=== PATIENT | female | born 1985 | race Caucasian/White ===

== ENCOUNTER → 2018-01-01 08:35 | Outpatient (CLI) | payer OTHER, SELFPAY ==
--- NOTE | 2018-01-01 | DI.US.S_ITS ---
PROCEDURE: US PELVIC COMPLETE INDICATIONS: LEFT OVARIAN CYST FOLLOW UP TECHNIQUE: Real-time scanning was performed of the pelvic organs, with image documentation. Additional endovaginal scanning was necessary due to incomplete visualization of the adnexal and endometrial structures by transabdominal scanning. COMPARISON: [facility], , PELVIC COMPLETE, 11/21/2017, 7:41. FINDINGS: Transabdominal scanning: Limited scanning through the kidneys shows no hydronephrosis. The kidneys measure 10.6 CM right and 10.8 CM left. No pathologic free abdominal or pelvic fluid. Endovaginal scanning: Uterus: Uterus is normal in size at 3.8 x 4.4 x 6.3 cm. The endometrium measures 8.0 mm in combined thickness. Small right posterior intramural fibroid is again noted measuring 8 x 8 mm. Ovaries: Right ovary appears normal measuring 20 x 25 x 32 mm. The left ovary measures 19 x 24 x 36 mm and again contains a small complex cyst versus solid mass that is smaller measuring 11 x 13 x 14 mm now compared to 15 x 17 x 20 mm on prior. IMPRESSION: 1. Small 8 x 8 mm uterine fibroid. 2. Normal right ovary. 3. Left ovarian complex cyst, now having more appearance of a solid structure but decreased in size from 2 cm maximum diameter on last exam to 1.4 cm on current. Probable involuting physiological cyst. Dictated by: Federico Pandya M.D. on 01/01/2018 at 9:36 Approved by: Federico Pandya M.D. on 01/01/2018 at 9:42
== END ==
PROVIDERS: Family Provider Nurse Practitioner Family; PCP Nurse Practitioner Family; Visit Provider Nurse Practitioner Family
DX: N83.202 Unspecified ovarian cyst, left side (principal); D25.9 Leiomyoma of uterus, unspecified
CPT/HCPCS: 76830; 76856

== ENCOUNTER → 2018-03-27 10:37 | Outpatient (CLI) | payer OTHER, SELFPAY ==
--- NOTE | 2018-03-27 | DI.US.S_ITS ---
PROCEDURE: US PELVIC COMPLETE INDICATIONS: PELVIC PAIN TECHNIQUE: Real-time scanning was performed of the pelvic organs, with image documentation. Additional endovaginal scanning was necessary due to incomplete visualization of the adnexal and endometrial structures by transabdominal scanning. COMPARISON: [facility], PELVIC COMPLETE, 11/21/2017, 7:41. [facility], PELVIC COMPLETE, 01/01/2018, 8:52. FINDINGS: Transabdominal scanning: Limited scanning through the kidneys shows right-sided hydronephrosis. A right ureteral jet can be seen. A mild amount of free pelvic fluid is seen, which is considered to be within physiologic limits. Endovaginal scanning: Uterus: Uterus is normal in size at 6.4 x 3.3 x 4.4 cm. The endometrium measures 7 mm in combined thickness. There is a 1 cm intramural fibroid seen posteriorly. Ovaries: The right ovary measures 2.4 x 2 x 3.1 cm and demonstrates a 13 mm dominant follicle, which is considered to be within physiologic limits. The left ovary measures 2.5 x 2.1 x 3.2 cm. The previously seen left ovarian complex cyst has resolved in IMPRESSION: Resolution of the previously seen left ovarian complex cyst. Moderate right-sided hydronephrosis. Dictated by: Yves Monroe M.D. on 03/27/2018 at 12:13 Approved by: Yves Monroe M.D. on 03/27/2018 at 12:16
== END ==
PROVIDERS: Family Provider Nurse Practitioner Family; PCP Nurse Practitioner Family; Visit Provider Nurse Practitioner Family
DX: R10.2 Pelvic and perineal pain (principal); N13.30 Unspecified hydronephrosis
CPT/HCPCS: 76830; 76856

== ENCOUNTER → 2021-02-04 09:45 | Outpatient (CLI) | payer OTHER, SELFPAY ==
[2021-02-04 10:38] LABS: Add Manual Diff / Slide Review NO; Basophils Absolute Auto 0 /uL (0-100); Basophils Percent Auto 0.3 % (0-2); Eosinophils Absolute Auto 200 /uL (0-450); Eosinophils Percent Auto 1.4 % (2-4); Hematocrit 36.5 % (36-46); Hemoglobin 12.7 g/dL (12.0-16.0); Lymphocytes Absolute Auto 1600 /uL (1100-4500); Lymphocytes Percent Auto 13.7 % (25-40); Mean Corpuscular HGB Conc 34.9 % (30-36); Mean Corpuscular Hemoglobin 32.5 PG (26-34); Mean Corpuscular Volume 93.1 fL (80-100); Monocytes Absolute Auto 600 /uL (0-900); Monocytes Percent Auto 5.1 % (3-14); Neutrophils Absolute Auto 9200 /uL (1500-7000); Neutrophils Percent Auto 79.5 % (50-75); Platelet Count 291 X10^3/uL (150-400); Red Blood Cell Count 3.92 X10^6/uL (4.0-5.2); Red Cell Distribution Width 12.9 % (11.6-14.8); White Blood Cell Count 11.5 X10^3/uL (4.5-11.0)
[2021-02-04 11:24] LABS: Hepatitis B Surface Antigen NEGATIVE s/c (NEGATIVE); Rubella Antibody IgG 96.3 IU/mL (>15)
[2021-02-04 11:48] LABS: HIV 1 & 2 Ab/Ag 4th Gen Combo NEGATIVE (NEGATIVE); Hep C Virus Ab w/Reflex Quant NEGATIVE s/c (NEGATIVE)
[2021-02-04 12:16] LABS: Appearance Urine UA CLEAR; Bilirubin Urine UA NEGATIVE (NEGATIVE); Color Urine UA YELLOW; Glucose Urine UA NEGATIVE (Negative); Ketones Urine UA NEGATIVE (NEGATIVE); Leukocyte Esterase Urine UA NEGATIVE (NEGATIVE); Nitrite Urine UA NEGATIVE (Negative); Occult Blood Urine UA NEGATIVE (Negative); Protein Urine UA NEGATIVE (Negative); Urobilinogen Urine UA 0.2 E.U./dL (0.2)
[2021-02-04 12:24] LABS: pH Urine UA 6.5 (4.5-8.0)
[2021-02-05 06:36] LABS: RPR Screen Non Reactive (Non Reactive)
[2021-02-05 07:12] LABS: Varicella IgG Antibody 1895 index (Immune >165)
[2021-02-08 19:04] LABS: AFP Value 58.6 ng/mL (.); Gestational Age EDD (.); Insulin Dep Diabetes No (.); OSBR Risk 1IN 8647 (.); Results Report (.); Test Results *Screen Negative* (.)
== END ==
PROVIDERS: Family Provider Nurse Practitioner Family; PCP Family Medicine; Referring Provider Family Medicine; Visit Provider Family Medicine
DX: Z34.81 Encounter for supervision of other normal pregnancy, first trimester (principal); Z3A.19 19 weeks gestation of pregnancy
CPT/HCPCS: 36415; 80055; 81003; 82105; 86787; 86803; 86850; 86900; 86901; 87077; 87086; 87389

== ENCOUNTER → 2021-02-28 10:03 | Outpatient (CLI) | payer OTHER, SELFPAY ==
--- NOTE | 2021-02-28 10:03 | DI.US.S_ITS ---
PROCEDURE: US OB >= 14 WEEKS FETUS INDICATIONS: ANATOMY OUTSIDE/PRIOR DATING DATA: Last menstrual period (LMP): October 13, 2020. LMP-based estimated date of delivery (LUAN): July 06, 2021 . First dating scan (date and location): February 28, 2021 . Estimated date of delivery (LUAN) from first dating scan: June 27, 2021 . TECHNIQUE: Real-time scanning was performed of the fetus, with image documentation and biometric measurements. Endovaginal scanning: Not performed COMPARISON: None. FINDINGS: General: A single living intrauterine gestation is present. Presentation: Vertex. Placenta: Placental position is posterior , without previa. Low lying placenta with edge of the placental edge measuring 1.3 cm from the internal cervical os Amniotic fluid index: 21.3 cm, normal range is 5-24 cm. heart rate: 149 beats per minute. Maternal cervical canal: 4.0 cm long. Normal lower limit is 2.5 cm. Maternal ovaries were not well visualized on this study. biometrics: Biparietal diameter: 5.7 cm, correlating with 23 weeks and 3 days Head circumference: 20.3 cm, correlating with 22 weeks and 3 days Abdominal circumference: 17.9 cm, correlating with 22 weeks and 5 days Femur length: 4.1 cm, correlating with 23 weeks and 2 days Estimated gestational age from initial scan: not applicable. Composite gestational age from present scan: 23 weeks and 0 days Estimated weight and percentile: 551 g which [address] the fetus within the 95th percentile based off gestational age. Measurement variability for biometric dating: +/- 7 days from 14 weeks to 15 weeks 6 days gestation, +/- 10 days from 16 weeks to 21 weeks 6 days gestation, +/- 2 weeks from 22 weeks to 27 weeks 6 days gestation, +/- 3 weeks for 28 weeks gestation or later. weight reference: 4500 g or EFW >90/95% is considered macrosomia or large for gestational age. EFW <10% is small for gestational age. EFW 5% or less is considered intra-uterine growth restriction. Anatomic survey: Neuro: Ventricles are non-dilated at less than 10 mm. Cisterna magna is normal at 3-11 mm. Cerebellum is normal in size and morphology. Nuchal skin fold: Normal at less than 6 mm between 14-21 weeks gestational age. Face: Nose and lips, facial profile are normal. Spine: No evidence for spina bifida. Heart: 4-chambered heart is present, with normal ventricular outflow tracts. Diaphragm: Diaphragm is intact. Stomach: Left-sided stomach is present. Kidneys: No hydronephrosis. Normal is less than 5 mm in 2nd trimester, less than 7 mm in 3rd trimester. Cord: 3-vessel cord has orthotopic insertion. Bladder: Normal in size. Extremities: All 4 extremities identified. IMPRESSION: 1. Single living intrauterine gestation with estimated sonographic gestational age of approximately 23 weeks and 0 days and estimated dated delivery of June 27, 2021. 2. Estimated weight of approximately 151 g which [address] the fetus within the 95th percentile based off gestational age. 3. Low lying placenta with the edge of the placenta measuring approximately 1.3 cm from the internal cervical os. Follow-up recommended. 4. Unremarkable anatomic screening survey. Dictated by: Lyndon Coates M.D. on 02/28/2021 at 12:21 Approved by: Lyndon Coates M.D. on 02/28/2021 at 12:27
== END ==
PROVIDERS: Family Provider Nurse Practitioner Family; PCP Family Medicine; Referring Provider Family Medicine; Visit Provider Family Medicine
DX: Z36.89 Encounter for other specified antenatal screening (principal); Z3A.23 23 weeks gestation of pregnancy
CPT/HCPCS: 76811

== ENCOUNTER → 2021-03-25 07:57 | Outpatient (CLI) | payer OTHER, SELFPAY ==
[2021-03-25 10:16] LABS: Hemoglobin 12.1 g/dL (12.0-16.0)
[2021-03-25 10:46] LABS: GTT (PREG) 1 Hour PP 50gm Dose 99 mg/dL (76-139)
== END ==
PROVIDERS: Family Provider Nurse Practitioner Family; PCP Family Medicine; Referring Provider Family Medicine; Visit Provider Family Medicine
DX: Z34.90 Encounter for supervision of normal pregnancy, unspecified, unspecified trimester (principal); Z3A.26 26 weeks gestation of pregnancy
CPT/HCPCS: 36415; 82950; 85014; 85018

== ENCOUNTER → 2021-04-19 09:41 | Outpatient (CLI) | payer OTHER, SELFPAY ==
--- NOTE | 2021-04-19 09:42 | DI.US.S_ITS ---
PROCEDURE: US OB LIMITED INDICATIONS: CHECK GROWTH AND PLACENTA OUTSIDE/PRIOR DATING DATA: Last menstrual period (LMP): 10/13/20 . LMP-based estimated date of delivery (LUAN): 07/06/21 . First dating scan (date and location): 02/28/21 . Estimated date of delivery (LUAN) from first dating scan: 06/27/21 . TECHNIQUE: Real-time scanning was performed of the fetus, with image documentation and biometric measurements. Endovaginal scanning: Performed COMPARISON: [facility], OB >= 14 WEEKS FETUS, 02/28/2021, 10:26. FINDINGS: General: A single living intrauterine gestation is present. Presentation: Vertex. Placenta: Placental position is posterior , without previa. Placental margin is thought to measure 5.7 cm from the internal os. Amniotic fluid index: 18.1 cm, normal range is 5-24 cm. heart rate: 155 beats per minute. Maternal cervical canal: 4.2 cm long. Normal lower limit is 2.5 cm. biometrics: Biparietal diameter: 7.6 cm, 30 weeks 4 days Head circumference: 27.8 cm, 30 weeks 3 days Abdominal circumference: 25.8 cm, 29 weeks 6 days Femur length: 5.7 cm, 30 weeks 0 days Estimated gestational age from initial scan: 30 weeks 1 day Composite gestational age from present scan: 30 weeks 2 days Estimated weight and percentile: 1498 g, 33rd percentile Measurement variability for biometric dating: +/- 7 days from 14 weeks to 15 weeks 6 days gestation, +/- 10 days from 16 weeks to 21 weeks 6 days gestation, +/- 2 weeks from 22 weeks to 27 weeks 6 days gestation, +/- 3 weeks for 28 weeks gestation or later. weight reference: 4500 g or EFW >90/95% is considered macrosomia or large for gestational age. EFW <10% is small for gestational age. EFW 5% or less is considered intra-uterine growth restriction. Other: Not applicable. IMPRESSION: Single living intrauterine fetus in vertex presentation. Expected interval growth as above. No placenta previa identified. Dictated by: Kevin Moya M.D. on 04/19/2021 at 13:14 Approved by: Kevin Moya M.D. on 04/19/2021 at 13:19
== END ==
PROVIDERS: Family Provider Nurse Practitioner Family; PCP Family Medicine; Referring Provider Family Medicine; Visit Provider Family Medicine
DX: Z36.89 Encounter for other specified antenatal screening (principal); Z3A.30 30 weeks gestation of pregnancy
CPT/HCPCS: 76815; 76817

== ENCOUNTER → 2021-06-03 08:58 | Outpatient (CLI) | payer OTHER, SELFPAY ==
[2021-06-04 09:19] LABS: Strep Grp B PCR POS for Grp B Strep
== END ==
PROVIDERS: Family Provider Nurse Practitioner Family; Visit Provider Family Medicine
DX: Z3A.36 36 weeks gestation of pregnancy (principal); Z36.85 Encounter for antenatal screening for Streptococcus B
CPT/HCPCS: 87653

== ENCOUNTER 2021-06-03 09:04 | Outpatient (CLI) | payer OTHER, SELFPAY ==
--- NOTE | 2021-06-03 10:05 | P.TNLD_ITS ---
Visit Information Visit Information Date of evaluation: 06/03/21 Primary OB Provider: Ashtyn Lucas Reason for Evaluation: Yes non-stress test non-stress test reason: other (MTHFR, AMA) Comments/Additional reasons for admission: 35-year-old at 36 weeks gestation. Here for NST due to MTHFR mutation as well as AMA. Vital Signs Vital Signs: Temperature 36.5? 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 (~03/2019) UTI (urinary tract infection) Surgical History Anesthesia H/O lateral meniscus repair of left knee (~2013) H/O lithotripsy (~2019) History of colposcopy (~2003) History of urethral stent (~2000) In vitro fertilization (~2019) [place] teeth extracted (~2011) Family History Mother Obesity Father Diabetes mellitus Skin cancer of face Grandmother Endometrial cancer Grandfather Left cataract Glaucoma Grandmother Breast cancer Family/Other Breast cancer Grandfather Parkinson's disease Social History marital status: household members: spouse lives independently: Yes caregiver/support person: No housing: house pets and animals: Yes (1 dog: safe around babies, loves children.) education level: college (BA [employer]) occupational status: employed ([employer] for [employer]. ) current occupational exposures/hazards: No hamzah/anglican: Nondenominational special hamzah needs: No seatbelt use: always do you feel safe at home: Yes Smoking Status: Never smoker second hand exposure: No alcohol intake: never (Very occasional glass of champagne. ) substance use type: does not use during the past year weight has: increased > 10 lbs well-balanced diet: daily or most days daily servings fruits/ve-4 caffeine: Yes (1 small bottle of coffee (80mg) daily. ) eating out: rarely or never Type(s) of exercise: walking and running (Normally a runner, but has not run since FET. Usually 2-3 miles a day outside or treadmill typically. ) frequency: daily Evaluation Evaluation Baseline heart rate: 140 Variability: Moderate (11-25) monitor accelerations: Present Monitor Decelerations: Absent Category of Tracing: Reactive Diagnosis, Plan/Disposition Plan/Disposition Plan: Reactive NST done for MTHFR mutation and advanced maternal age. Will continue weekly NST. OB Disposition: home
== END 2021-06-03 10:15 | disposition home or self-care (01) ==
LOC: LABOR 12:12 → OB 06-06 09:20
PROVIDERS: Family Provider Nurse Practitioner Family; Referring Provider Family Medicine; Visit Provider Family Medicine
DX: O99.283 Endocrine, nutritional and metabolic diseases complicating pregnancy, third trimester (principal); E72.12 Methylenetetrahydrofolate reductase deficiency; O09.523 Supervision of elderly multigravida, third trimester; Z36.85 Encounter for antenatal screening for Streptococcus B; Z3A.36 36 weeks gestation of pregnancy
CPT/HCPCS: 59025; 87653; G0378; G0379

== ENCOUNTER 2021-06-10 09:01 | Outpatient (CLI) | payer OTHER, SELFPAY ==
--- NOTE | 2021-06-10 09:34 | P.TNLD_ITS ---
Visit Information Visit Information Date of evaluation: 06/10/21 Primary OB Provider: Ashtyn Lucas Reason for Evaluation: Yes non-stress test non-stress test reason: other (AMA, +MTHFR) Vital Signs Vital Signs: Temperature 36.4? 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 (~03/2019) UTI (urinary tract infection) Surgical History Anesthesia H/O lateral meniscus repair of left knee (~2013) H/O lithotripsy (~2019) History of colposcopy (~2003) History of urethral stent (~2000) In vitro fertilization (~2019) [place] teeth extracted (~2011) Family History Mother Obesity Father Diabetes mellitus Skin cancer of face Grandmother Endometrial cancer Grandfather Left cataract Glaucoma Grandmother Breast cancer Family/Other Breast cancer Grandfather Parkinson's disease Social History marital status: household members: spouse lives independently: Yes caregiver/support person: No housing: house pets and animals: Yes (1 dog: safe around babies, loves children.) education level: college (BA [employer]) occupational status: employed ([employer]. ) current occupational exposures/hazards: No hamzah/congregation: [employer] special hamzah needs: No seatbelt use: always do you feel safe at home: Yes Smoking Status: Never smoker second hand exposure: No alcohol intake: never (Very occasional glass of champagne. ) substance use type: does not use during the past year weight has: increased > 10 lbs well-balanced diet: daily or most days daily servings fruits/ve-4 caffeine: Yes (1 small bottle of coffee (80mg) daily. ) eating out: rarely or never Type(s) of exercise: walking and running (Normally a runner, but has not run since FET. Usually 2-3 miles a day outside or treadmill typically. ) frequency: daily Evaluation Evaluation Baseline heart rate: 130 Variability: Moderate (11-25) monitor accelerations: Present Monitor Decelerations: Absent Category of Tracing: Reactive Diagnosis, Plan/Disposition Final Diagnosis (1) 37 weeks gestation of : Status: Acute Plan/Disposition Plan: Reactive NST done for MTHFR mutation and advanced maternal age.? Will continue weekly NST. OB Disposition: home
== END 2021-06-10 09:45 | disposition home or self-care (01) ==
LOC: LABOR 09:52 → OB 06-14 01:31
PROVIDERS: Family Provider Nurse Practitioner Family; PCP Family Medicine; Referring Provider Family Medicine; Visit Provider Family Medicine
DX: O99.283 Endocrine, nutritional and metabolic diseases complicating pregnancy, third trimester (principal); O09.523 Supervision of elderly multigravida, third trimester; E72.12 Methylenetetrahydrofolate reductase deficiency; Z3A.37 37 weeks gestation of pregnancy
CPT/HCPCS: 59025; G0378; G0379

== ENCOUNTER 2021-06-17 09:01 | Outpatient (CLI) | payer OTHER, SELFPAY ==
--- NOTE | 2021-06-17 09:52 | P.TNLD_ITS ---
Visit Information Visit Information Date of evaluation: 06/17/21 Primary OB Provider: Ashtyn Lucas Reason for Evaluation: Yes non-stress test non-stress test reason: other (AMA, MTHFR mutation) Vital Signs Vital Signs: Temperature 36.4? 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 (~03/2019) UTI (urinary tract infection) Surgical History Anesthesia H/O lateral meniscus repair of left knee (~2013) H/O lithotripsy (~2019) History of colposcopy (~2003) History of urethral stent (~2000) In vitro fertilization (~2019) [place] teeth extracted (~2011) Family History Mother Obesity Father Diabetes mellitus Skin cancer of face Grandmother Endometrial cancer Grandfather Left cataract Glaucoma Grandmother Breast cancer Family/Other Breast cancer Grandfather Parkinson's disease Social History marital status: household members: spouse lives independently: Yes caregiver/support person: No housing: house pets and animals: Yes (1 dog: safe around babies, loves children.) education level: college (BA Business [employer]) occupational status: employed ([employer]. ) current occupational exposures/hazards: No hamzah/samaritan: [employer] special hamzah needs: No seatbelt use: always do you feel safe at home: Yes Smoking Status: Never smoker second hand exposure: No alcohol intake: never (Very occasional glass of champagne. ) substance use type: does not use during the past year weight has: increased > 10 lbs well-balanced diet: daily or most days daily servings fruits/ve-4 caffeine: Yes (1 small bottle of coffee (80mg) daily. ) eating out: rarely or never Type(s) of exercise: walking and running (Normally a runner, but has not run since FET. Usually 2-3 miles a day outside or treadmill typically. 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 Induction scheduled at 39 weeks. OB Disposition: home
== END 2021-06-17 10:00 | disposition home or self-care (01) ==
LOC: LABOR 09:04 → OB 06-21 07:40
PROVIDERS: Family Provider Nurse Practitioner Family; PCP Family Medicine; Referring Provider Family Medicine; Visit Provider Family Medicine
DX: O99.283 Endocrine, nutritional and metabolic diseases complicating pregnancy, third trimester (principal); E72.12 Methylenetetrahydrofolate reductase deficiency; O09.523 Supervision of elderly multigravida, third trimester; Z3A.38 38 weeks gestation of pregnancy
CPT/HCPCS: 59025; G0378; G0379

== ENCOUNTER 2021-06-24 08:49 | Observation (INO) | payer OTHER, SELFPAY | END 2021-06-24 09:30 | disposition home or self-care (01) | PROVIDERS: Admitting Provider Family Medicine; Family Provider Nurse Practitioner Family; PCP Family Medicine; Referring Provider Family Medicine; Visit Provider Family Medicine | DX: O09.523 Supervision of elderly multigravida, third trimester (principal); Z3A.39 39 weeks gestation of pregnancy | CPT/HCPCS: 59025; G0378; G0379 ==

== ENCOUNTER 2021-06-26 17:17 | Observation (INO) | payer OTHER, SELFPAY ==
[2021-06-26 18:24] LABS: Add Manual Diff / Slide Review NO; Basophils Absolute Auto 100 /uL (0-100); Basophils Percent Auto 0.5 % (0-2); Eosinophils Absolute Auto 100 /uL (0-450); Eosinophils Percent Auto 0.9 % (2-4); Hematocrit 35.6 % (36-46); Hemoglobin 12.6 g/dL (12.0-16.0); Lymphocytes Absolute Auto 1600 /uL (1100-4500); Lymphocytes Percent Auto 12.8 % (25-40); Mean Corpuscular HGB Conc 35.3 % (30-36); Mean Corpuscular Hemoglobin 32.7 PG (26-34); Mean Corpuscular Volume 92.6 fL (80-100); Monocytes Absolute Auto 600 /uL (0-900); Monocytes Percent Auto 5.2 % (3-14); Neutrophils Absolute Auto 9800 /uL (1500-7000); Neutrophils Percent Auto 80.6 % (50-75); Platelet Count 185 X10^3/uL (150-400); Red Blood Cell Count 3.85 X10^6/uL (4.0-5.2); Red Cell Distribution Width 12.4 % (11.6-14.8); White Blood Cell Count 12.2 X10^3/uL (4.5-11.0)
[2021-06-26 18:35] VITALS: BP 106/65
[2021-06-26 18:50] LABS: COVID19 -Nasal RAPID Negative (Negative)
[2021-06-26] MEDS: DINOPROSTONE VAG (CERVIDIL) 10 MG VAG (19:26)
[2021-06-27] MEDS: ONDANSETRON 4 MG/2 ML INJ IV (06:13)
--- NOTE | 2021-06-27 07:33 | P.HPOB_ITS ---
OB HPI Date/Time Date of admission: 06/26/21 Date Patient Seen: 06/27/21 Time Patient Seen: 07:20 History of Present Condition Chief complaint: LUAN Calculator Estimated Delivery Date Method Current WG Current Estimate 07/01/21 Ultrasound #1 39w 3d Other Estimates 07/01/21 Ultrasound #2 39w 3d 07/01/21 Conception 39w 3d : 6 Para: 0 Narrative: 36-year-old at 39 weeks 3 days here for induction for advanced age. 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 She also has an MTHFR mutation and was on heparin per her fertility clinic until 36 weeks. She had persistent nausea throughout her managed with Zofran once daily in addition to Unisom and vitamin B6. She received Cervidil overnight reports some cramping this morning but denies pain, leaking bleeding. Good movement. care: good care, initiated at week # (7), number of visits (14) and pounds weight gain (42) Dating criteria OB: based on 1st trimester US only (Known conception date) Ultrasounds: normal 1st trimester US and normal mid trimester US Abnormal ultrasound findings: Estimated weight ninety-fifth percentile at 20 weeks however follow-up estimated weight thirty-third percentile at 30 weeks. Obstetrical complications: none Medical complications OB: none Indications Indication for induction OB: other (Advanced maternal age) Preadmission Labs Last OB Lab Results: Blood Type O Positive 06/26/21 18:05 06/26/21 Antibody Screen Negative 06/26/21 18:05 06/26/21 Hematocrit 35.6 % (36-46) L 06/26/21 18:05 06/26/21 Hemoglobin 12.6 g/dL (12.0-16.0) 06/26/21 18:05 06/26/21 Hepatitis B Surface Antigen Negative s/c (NEGATIVE) 02/04/21 09:58 02/04/21 Hepatitis C Antibody Negative s/c (NEGATIVE) 02/04/21 09:58 02/04/21 Rubella Antibody 96.3 IU/mL (>15) 02/04/21 09:58 02/04/21 Varicella-Zoster IgG Antibody 1895 index (Immune >165) 02/04/21 09:58 02/04/21 Glucose 1 Hour 99 mg/dL (76-139) 03/25/21 09:10 03/25/21 Group B Streptococcus (PCR) Pos for grp b strep H 06/03/21 08:58 06/03/21 Prior (ies) Past Pregnancies Del. Date GA/Weeks Labor Lgth Wt Sex Route Outcome Anesthesia Place Delv Breastfeed Preg Comp Name 06/06/18 7 11/10/18 5.3 02/15/19 9.1 07/28/19 9.6 08/08/20 6.1 Delivery Date: 06/06/18 Spontaneous conception. Tawny Brandt Delivery Date: 11/10/18 Spontaneous conception. Tawny Brandt Delivery Date: 02/15/19 Spontaneous conception. Tawny Brandt Delivery Date: 07/28/19 Spontaneous conception. Tawny Brandt Delivery Date: 08/08/20 Conceived with FET but did not take. Low Hcgs that did not rise appropriately. Tawny Brandt Evaluation Evaluation Baseline heart rate: 130 Variability: Moderate (11-25) monitor accelerations: Present Monitor Decelerations: Absent Category of Tracing: Reactive Dilation (cm): 0 Effacement (%): 25 Dilation: Closed Effacement: 0-30% station: -3 Position of cervix: mid Consistency: soft Boss score: 3 PFSH Medical History Abnormal Pap smear of cervix (~2003) Advanced maternal age (AMA) in Anxiety (~2019) Chicken pox (~1994) Cystic fibrosis carrier Depression (~2019) H/O cow's milk protein sensitivity Kidney stone (~1999) Ovarian cyst (~2017) PTSD (post-traumatic stress disorder) (~08/2019) Pyelonephritis (~1999) Renal duplicate collecting system, right (~1999) Seasonal allergies (~2017) 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 (~03/2019) UTI (urinary tract infection) Surgical History Anesthesia H/O lateral meniscus repair of left knee (~2013) H/O lithotripsy (~2019) History of colposcopy (~2003) History of urethral stent (~2000) In vitro fertilization (~2019) [place] teeth extracted (~2011) Family History Mother Obesity Father Diabetes mellitus Skin cancer of face Grandmother Endometrial cancer Grandfather Left cataract Glaucoma Grandmother Breast cancer Family/Other Breast cancer Grandfather Parkinson's disease Social History marital status: household members: spouse lives independently: Yes caregiver/support person: No housing: house pets and animals: Yes (1 dog: safe around babies, loves children.) education level: college ([employer]) occupational status: employed ([employer]. ) current occupational exposures/hazards: No hamzah/gnosticism: Zoroastrianism special hamzah needs: No seatbelt use: always do you feel safe at home: Yes Smoking Status: Never smoker second hand exposure: No alcohol intake: never (Very occasional glass of champagne. ) substance use type: does not use during the past year weight has: increased > 10 lbs well-balanced diet: daily or most days daily servings fruits/ve-4 caffeine: Yes (1 small bottle of coffee (80mg) daily. ) eating out: rarely or never Type(s) of exercise: walking and running (Normally a runner, but has not run si nce FET. Usually 2-3 miles a day outside or treadmill typically. ) frequency: daily Meds Home Medications and Allergies Home Medications Medication Instructions Recorded Confirmed Type prenat.vits,aguilar,jap-[id number] 1 tab PO DAILY 12/16/20 06/26/21 History ondansetron 4 mg disintegrating 4 mg PO Q8H PRN #30 tab 06/03/21 06/26/21 Rx tablet Allergies Allergy/AdvReac Type Severity Reaction Status Date / Time No Known Drug Allergies Allergy Verified 12/16/20 14:04 Review of Systems Review of Systems ROS: Yes All systems reviewed with the patient and are negative except as otherwise documented OB Exam Narrative Exam Narrative: Temperature 36.2? blood pressure 108/62 heart rate 81 HENMT Head: normal to inspection Mouth: oral mucosae normal Eyes General: appearance normal, both eyes and all related structures Resp Effort & Inspection: normal respiratory effort Auscultation: clear to auscultation bilaterally Cardio Rate: regular rate Rhythm: regular rhythm Heart Sounds: no murmurs Extremities Lower extremity: Yes normal to inspection External Female Exam: Yes normal external appearance Presentation: vertex Estimated Weight (lbs): 7 Objective Labs Result Diagrams: 06/26/21 18:05 Labs: Laboratory Results - last 24 hr 06/26/21 06/26/21 06/26/21 18:05 18:05 18:15 WBC 12.2 H RBC 3.85 L Hgb 12.6 Hct 35.6 L MCV 92.6 MCH 32.7 MCHC 35.3 RDW 12.4 Plt Count 185 Neut % (Auto) 80.6 H Lymph % (Auto) 12.8 L [place] % (Auto) 5.2 Eos % (Auto) 0.9 L Baso % (Auto) 0.5 Neut # (Auto) 9800 H Lymph # (Auto) 1600 [place] # (Auto) 600 Eos # (Auto) 100 Baso # (Auto) 100 SARS-CoV-2 (PCR) Negative Blood Type O Positive Antibody Screen Negative Assessment and Plan Assessment and Plan Assessment and Plan narrative: 36-year-old at 39 weeks and 3 days here for induction for advanced maternal age. She received Cervidil overnight with no change in cervix. Boss score remains unfavorable this morning. Will proceed with further cervical ripening with Cytotec today and re-evaluate at lunchtime for possible Olivo bulb placement if able. She is GBS positive and will need prophylactic antibiotics once in labor. Admit labs reviewed. COVID negative. She desires an epidural eventually.
[2021-06-27] MEDS: miSOPROStoL 25 MCG TABLET PO ×2 (09:08→17:05)
[2021-06-27] MEDS: miSOPROStoL 25 MCG TABLET VAG (13:00)
--- NOTE | 2021-06-27 13:19 | P.PNOB_ITS ---
Date/Time Date Patient Seen: 06/27/21 Time Patient Seen: 12:30 Pain Control Pain control: tolerating well Comments: Feeling some cramping but tolerating very well. She has had an upset stomach since the oral Cytotec but no vomiting. Pelvic Exam Dilation (cm): 1 Effacement (%): 50 station: -2 Contractions Contraction pattern: Irregular Status status: Category l Heart Rate Baseline: 130 Monitor Accelerations: Present Monitor Decelerations: Absent Monitor Variability: Moderate Assessment and Plan Assessment: induction ongoing Comments: Patient now making some cervical change after one dose of oral Cytotec . Will give next dose vaginally given upset stomach. Recheck SVE in 4 hours.
--- NOTE | 2021-06-27 17:05 | P.DS_ITS ---
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 She has received Cervidil as well as 2 doses of Cytotec with minimal cervical change. SVE /-2. Discussed options for further cervical ripening including Olivo bulb placement verses medication. status has been very reassuring over the course of the day. EFM category 1. heart tones 130s with moderate variability, accelerations and no decelerations. Will give 1 more dose of Cytotec for ripening, monitor per protocol then she will discharge home undelivered. She is scheduled for repeat cervical ripening the evening of 06/29/21 but will return to the center for leaking of fluid, labor or any other concerns. Status at Discharge Cognitive/behavioral status at discharge: oriented Functional status at discharge: independent ambulation Overall status at discharge: patient is back to baseline Objective Labs Result Diagrams: 06/26/21 18:05 Labs: Laboratory Results - last 24 hr 06/26/21 06/26/21 06/26/21 18:05 18:05 18:15 WBC 12.2 H RBC 3.85 L Hgb 12.6 Hct 35.6 L MCV 92.6 MCH 32.7 MCHC 35.3 RDW 12.4 Plt Count 185 Neut % (Auto) 80.6 H Lymph % (Auto) 12.8 L [place] % (Auto) 5.2 Eos % (Auto) 0.9 L Baso % (Auto) 0.5 Neut # (Auto) 9800 H Lymph # (Auto) 1600 [place] # (Auto) 600 Eos # (Auto) 100 Baso # (Auto) 100 SARS-CoV-2 (PCR) Negative Blood Type O Positive Antibody Screen Negative [facility] Medical History Abnormal Pap smear of cervix (~2003) Advanced maternal age (AMA) in Anxiety (~2019) Chicken pox (~1994) Cystic fibrosis carrier Depression (~2019) H/O cow's milk protein sensitivity Kidney stone (~1999) Ovarian cyst (~2017) PTSD (post-traumatic stress disorder) (~08/2019) Pyelonephritis (~1999) Renal duplicate collecting system, right (~1999) Seasonal allergies (~2017) 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 (~03/2019) UTI (urinary tract infection) Surgical History Anesthesia H/O lateral meniscus repair of left knee (~2013) H/O lithotripsy (~2019) History of colposcopy (~2003) History of urethral stent (~2000) In vitro fertilization (~2019) [place] teeth extracted (~2011) Family History Mother Obesity Father Diabetes mellitus Skin cancer of face Grandmother Endometrial cancer Grandfather Left cataract Glaucoma Grandmother Breast cancer Family/Other Breast cancer Grandfather Parkinson's disease Social History marital status: household members: spouse lives independently: Yes caregiver/support person: No housing: house pets and animals: Yes (1 dog: safe around babies, loves children.) education level: college ([employer]) occupational status: employed ([employer] for [employer]. ) current occupational exposures/hazards: No hamzah/yazidi: Taoism special hamzah needs: No seatbelt use: always do you feel safe at home: Yes Smoking Status: Never smoker second hand exposure: No alcohol intake: never (Very occasional glass of champagne. ) substance use type: does not use during the past year weight has: increased > 10 lbs well-balanced diet: daily or most days daily servings fruits/ve-4 caffeine: Yes (1 small bottle of coffee (80mg) daily. ) eating out: rarely or never Type(s) of exercise: walking and running (Normally a runner, but has not run since FET. Usually 2-3 miles a day outside or treadmill typically. ) frequency: daily Discharge Plan Discharge Plan Patient Disposition: Home Discharge orders & Medications Prescriptions: Continued ondansetron 4 mg tablet,disintegrating 4 mg PO Q8H PRN (Reason: nausea and vomiting) Qty: 30 RF: 0 prenat.vits,aguilar,nir-ldah-qeiyv Tablet 1 tab PO DAILY RF: 0 Follow up/Referrals: Ashtyn Lucas DO [Primary Care Provider] - Visit Report/Discharge Packet Visit Report Forms: Patient Portal/API, Stroke Signs & Symptoms Discharge Data Primary Care Provider: Ashtyn Lucas Attending Provider: Ashtyn Lucas Admit Date/Time: 06/26/21 17:17
[2021-06-27 18:07] VITALS: BP 94/57; PULSE 72; RESP 18; TEMP 36.2
== END 2021-06-27 18:35 | disposition home or self-care (01) ==
PROVIDERS: Admitting Provider Family Medicine; Family Provider Nurse Practitioner Family; PCP Family Medicine; Referring Provider Family Medicine; Visit Provider Family Medicine
DX: O99.820 Streptococcus B carrier state complicating pregnancy (principal); O09.513 Supervision of elderly primigravida, third trimester; Z3A.39 39 weeks gestation of pregnancy; Z20.822 Contact with and (suspected) exposure to COVID-19; O99.283 Endocrine, nutritional and metabolic diseases complicating pregnancy, third trimester; E72.12 Methylenetetrahydrofolate reductase deficiency
CPT/HCPCS: 59200; 36415; 59025; 59050; 85025; 86850; 86900; 86901; 87635; C9803; G0378; G0379; J2405

== ENCOUNTER 2021-06-27 23:56 | Inpatient (IN) | payer OTHER, SELFPAY ==
[2021-06-28 00:16] VITALS: BP 119/79
[2021-06-28] MEDS: PENICILLIN G POTASSIUM 5,000,000 UNIT in DEXTROSE 5% IN WATER 250 ML IV (00:40)
[2021-06-28] MEDS: LACTATED RINGERS 1,000 ML 100 ML IV ×2 (07:40→13:19)
--- NOTE | 2021-06-28 07:56 | P.HPOB_ITS ---
OB HPI Date/Time Date of admission: 06/28/21 Date Patient Seen: 06/28/21 Time Patient Seen: 06:30 History of Present Condition Chief complaint: MATERNITY LUAN Calculator Estimated Delivery Date Method Current WG Current Estimate 07/01/21 Ultrasound #1 39w 4d Other Estimates 07/01/21 Ultrasound #2 39w 4d 07/01/21 Conception 39w 4d Estimated Gestational Age (weeks): 39w4d : 6 Para: 0 Narrative: 36-year-old at 39 weeks 4 admitted in active labor overnight. SROM at home at 11:50 PM with clear fluid. She was 5 cm on admission and received an epidural with excellent pain control. was the product of IVF after 5 previous miscarriages.? 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 She also has an MTHFR mutation and was on heparin per her fertility clinic until 36 weeks.? She had persistent nausea throughout her managed with Zofran once daily in addition to Unisom and vitamin B6. care: good care, initiated at week # (7), number of visits (14) and pounds weight gain (42) Dating criteria OB: other (known conception with IVF) Ultrasounds: normal 1st trimester US and normal mid trimester US Abnormal ultrasound findings: Estimated weight ninety-fifth percentile at 20 weeks however follow-up estimated weight thirty-third percentile at 30 weeks. Obstetrical complications: none Medical complications OB: none Preadmission Labs Last OB Lab Results: Blood Type O Positive 06/28/21 00:20 06/28/21 Antibody Screen Negative 06/28/21 00:20 06/28/21 Hematocrit 35.6 % (36-46) L 06/26/21 18:05 06/26/21 Hemoglobin 12.6 g/dL (12.0-16.0) 06/26/21 18:05 06/26/21 Hepatitis B Surface Antigen Negative s/c (NEGATIVE) 02/04/21 09:58 02/04/21 Hepatitis C Antibody Negative s/c (NEGATIVE) 02/04/21 09:58 02/04/21 Rubella Antibody 96.3 IU/mL (>15) 02/04/21 09:58 02/04/21 Varicella-Zoster IgG Antibody 1895 index (Immune >165) 02/04/21 09:58 02/04/21 Glucose 1 Hour 99 mg/dL (76-139) 03/25/21 09:10 03/25/21 Group B Streptococcus (PCR) Pos for grp b strep H 06/03/21 08:58 06/03/21 Genetic Screens: Cell-free DNA: Normal and Alpha-fetoprotein: Normal Prior (ies) Past Pregnancies Del. Date GA/Weeks Labor Lgth Wt Sex Route Outcome Anesthesia Place Delv Breastfeed Preg Comp Name 06/06/18 7 11/10/18 5.3 02/15/19 9.1 07/28/19 9.6 08/08/20 6.1 Delivery Date: 06/06/18 Last Updated by: Tawny Brandt R.N. Spontaneous conception. Delivery Date: 11/10/18 Last Updated by: Tawny Brandt R.N. Spontaneous conception. Delivery Date: 02/15/19 Last Updated by: Tawny Brandt R.N. Spontaneous conception. Delivery Date: 07/28/19 Last Updated by: Tawny Brandt R.N. Spontaneous conception. Delivery Date: 08/08/20 Last Updated by: Tawny Brandt R.N. Conceived with FET but did not take. Low Hcgs that did not rise appropriately. Evaluation Evaluation Baseline heart rate: 140 Variability: Moderate (11-25) monitor accelerations: Present Monitor Decelerations: Absent Contraction Frequency (minutes): 4 Category of Tracing: Reactive Status: Category l Dilation (cm): 9 Effacement (%): 100 station: 0 Non-invasive Membranes Rupture Test: positive REPLACED BY [facility] Medical History Abnormal Pap smear of cervix (~2003) Advanced maternal age (AMA) in Anxiety (~2019) Chicken pox (~1994) Cystic fibrosis carrier Depression (~2019) H/O cow's milk protein sensitivity Kidney stone (~1999) Ovarian cyst (~2017) PTSD (post-traumatic stress disorder) (~08/2019) Pyelonephritis (~1999) Renal duplicate collecting system, right (~1999) Seasonal allergies (~2017) 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 (~03/2019) UTI (urinary tract infection) Surgical History Anesthesia H/O lateral meniscus repair of left knee (~2013) H/O lithotripsy (~2019) History of colposcopy (~2003) History of urethral stent (~2000) In vitro fertilization (~2019) [place] teeth extracted (~2011) Family History Mother Obesity Father Diabetes mellitus Skin cancer of face Grandmother Endometrial cancer Grandfather Left cataract Glaucoma Grandmother Breast cancer Family/Other Breast cancer Grandfather Parkinson's disease Social History marital status: household members: spouse lives independently: Yes caregiver/support person: No housing: house pets and animals: Yes (1 dog: safe around babies, loves children.) education level: college ([employer]) occupational status: employed ([employer]. ) current occupational exposures/hazards: No hamzah/druze: Episcopal special hamzah needs: No seatbelt use: always do you feel safe at home: Yes Smoking Status: Never smoker second hand exposure: No alcohol intake: never (Very occasional glass of champagne. ) substance use type: does not use during the past year weight has: increased > 10 lbs well-balanced diet: daily or most days daily servings fruits/ve-4 caffeine: Yes (1 small bottle of coffee (80mg) daily. ) eating out: rarely or never Type(s) of exercise: walking and running (Normally a runner, but has not run since . Usually 2-3 miles a day outside or treadmill typically. ) frequency: daily Meds Home Medications and Allergies Home Medications Medication Instructions Recorded Confirmed Type prenat.vits,aguilar,ntf-pklw-mhqjh 1 tab PO DAILY 12/16/20 06/28/21 History ondansetron 4 mg disintegrating 4 mg PO Q8H PRN #30 tab 06/27/21 06/28/21 Rx tablet Allergies Allergy/AdvReac Type Severity Reaction Status Date / Time No Known Drug Allergies Allergy Verified 12/16/20 14:04 OB Exam Narrative Exam Narrative: Temperature 36.2? blood pressure 108/62 heart rate 81 HENMT Head: normal to inspection Mouth: oral mucosae normal Eyes General: appearance normal, both eyes and all related structures Resp Effort & Inspection: normal respiratory effort Auscultation: clear to auscultation bilaterally Cardio Rate: regular rate Rhythm: regular rhythm Heart Sounds: no murmurs Extremities Lower extremity: Yes normal to inspection External Female Exam: Yes normal external appearance Presentation: vertex Estimated Weight (lbs): 7 Objective Labs Labs: Laboratory Results - last 24 hr 06/28/21 00:20 Blood Type O Positive Antibody Screen Negative Assessment and Plan Assessment and Plan Assessment and Plan narrative: 36-year-old at 39 weeks and 4 days gestation in active labor after spontaneous rupture membranes at home. GBS positive and receiving appropriate prophylaxis. She is comfortable with an epidural. Expectant management. Hopefully will begin pushing soon.
[2021-06-28] MEDS: PENICILLIN G POTASSIUM 3,000,000 UNIT/50 ML FROZ.PIGGY 100 UNIT IV (08:33)
--- NOTE | 2021-06-28 09:08 | PM.OBPNLAB ---
Date/Time Date Patient Seen: 06/28/21 Time Patient Seen: 08:00 Pain Control Pain control: tolerating well and epidural Comments: She is feeling more pain in her back and some pressure. Pelvic Exam Dilation (cm): 10 Effacement (%): 100 station: 0 Amniotic membrane status: Ruptured Contractions Contraction frequency (min): 5 Status status: Category l Heart Rate Baseline: 150 Monitor Accelerations: Present Monitor Decelerations: Absent Monitor Variability: Moderate Assessment and Plan Comments: Patient is complete and feeling some pressure. Suspect OP presentation. Will begin pushing and see if fetus can rotate with pushing. Contractions have spaced so will begin Pitocin.
--- NOTE | 2021-06-28 12:22 | PM.OBPNLAB ---
Date/Time Date Patient Seen: 06/28/21 Time Patient Seen: 12:25 Pain Control Pain control: tolerating well and epidural Pelvic Exam Effacement (%): 100 station: 0 Amniotic membrane status: Ruptured Contractions Contraction frequency (min): 5 Status status: Category ll Heart Rate Baseline: 140 Monitor Accelerations: Present Monitor Decelerations: Variable Monitor Variability: Moderate Assessment and Plan Assessment: active labor Plan: Comments: Dr. Medina consulted for possible forceps for maternal exhaustion and arrest of descent. Forceps unsuccessful so will proceed with . Risks and benefits reviewed with patient. Consent signed. 2 g Ancef prior to surgery.
--- NOTE | 2021-06-28 12:23 | PM.PREOP ---
Pre-operative Note COVID-19 COVID-19 status: Negative Result date/Date tested (Pos, Neg/Pending): 06/27/21 Interval Note History & Physical reviewed/Exam performed by Physician: Yes Changes to H&P: No
--- NOTE | 2021-06-28 12:23 | PM.CN ---
History of Present Illness Consult details Date Patient Seen: 06/28/21 Time Patient Seen: 12:23 Chief complaint: Reason for consult: Second-stage arrest Requesting provider: Ashtyn Lucas Narrative: Was asked for consultation for second-stage arrest Meds Home Medications and Allergies Home Medications Medication Instructions Recorded Confirmed Type prenat.vits,aguilar,clv-xswm-qsvri 1 tab PO DAILY 12/16/20 06/28/21 History ondansetron 4 mg disintegrating 4 mg PO Q8H PRN #30 tab 06/27/21 06/28/21 Rx tablet Allergies Allergy/AdvReac Type Severity Reaction Status Date / Time No Known Drug Allergies Allergy Verified 12/16/20 14:04 Review of Systems Review of Systems Narrative: Patient is pushing but is exhausted. Exam Narrative Exam Narrative: Patient had some initial descent from previous examination 1-1/2 hours ago. position is our OT to ROP. The fetus has occasional deep decelerations but otherwise good ndme-uh-byyt variability and sometimes no decelerations with contractions. Patient would like a trial of forceps to see if she can deliver vaginally rather than proceeding with section. The procedure was discussed with the patient and we received verbal consent. The forceps were placed and with the next contraction attempt was made to pull with the forceps well the patient pushed. There was absolutely no change in position. Decision made to abandon attempts at forceps. heart tones went down to the 60s for about 4 minutes but with position change, Pitocin off, O2 on the heart tones returned to baseline. Patient will be prepped for section. Olivo catheter was replaced. 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 (~03/2019) UTI (urinary tract infection) Surgical History Anesthesia H/O lateral meniscus repair of left knee (~2013) H/O lithotripsy (~2019) History of colposcopy (~2003) History of urethral stent (~2000) In vitro fertilization (~2019) [place] teeth extracted (~2011) Family History Mother Obesity Father Diabetes mellitus Skin cancer of face Grandmother Endometrial cancer Grandfather Left cataract Glaucoma Grandmother Breast cancer Family/Other Breast cancer Grandfather Parkinson's disease Social History marital status: household members: spouse lives independently: Yes caregiver/support person: No housing: house pets and animals: Yes (1 dog: safe around babies, loves children.) education level: college ([employer]) occupational status: employed ([employer]. ) current occupational exposures/hazards: No hamzah/yarsani: Muslim special hamzah needs: No Safety seatbelt use: always do you feel safe at home: Yes Tobacco & Substance Use Smoking Status: Never smoker second hand exposure: No alcohol intake: never (Very occasional glass of champagne. ) substance use type: does not use Diet and Exercise during the past year weight has: increased > 10 lbs well-balanced diet: daily or most days daily servings fruits/ve-4 caffeine: Yes (1 small bottle of coffee (80mg) daily. ) eating out: rarely or never Type(s) of exercise: walking and running (Normally a runner, but has not run since FET. Usually 2-3 miles a day outside or treadmill typically. ) frequency: daily Assessment & Plan Assessment and plan (1) Cephalopelvic disproportion due to inlet contraction of pelvis: Status: Acute Assessment & Plan narrative: Failed attempt at forceps delivery for second-stage arrest and maternal exhaustion. Patient will be prepped for section. Time Spent With Patient Critical Care time: I spent a total of [] minutes of critical care time on this patient's care today; this time is exclusive of procedural time.
[2021-06-28] MEDS: CEFAZOLIN 1 GM VIAL 2 GM IV (12:43)
--- NOTE | 2021-06-28 12:58 | SUR.OPER ---
Supine on Padded OR bed, head on pillow, safety belt at thigh, arms secured on padded arm boards at <90 degrees abduction. Bump under right buttock. Legs uncrossed with pillow under knees, gel pad to heels, tape over blanket to lower legs. Gel pad placed between patients posterior thigh and urinary catheter tubing.
--- NOTE | 2021-06-28 13:28 | SUR.OPER ---
Viable baby boy delivered at 1302. Placenta delivered. Cord blood tubes X2 and cord blood given to L&D RN.
[2021-06-28 14:16] VITALS: BP 108/72; PULSE 80; RESP 12; TEMP 37.1; O2SAT 99
--- NOTE | 2021-06-28 14:18 | PM.OBCS.1 ---
Operative Date/Time/Diagnoses Date of procedure: 06/28/21 Time of procedure: 12:30 Pre-op diagnosis: Arrest of descent, intolerance of labor, 39 weeks of Post-op diagnosis: same Procedure & Clinicians Procedure: Primary low transverse section Same procedure as scheduled: Yes Indications: Arrest of descent, intolerance of labor, 39 weeks of Surgeon: Ashtyn Lucas Active Directory Specialist: Sneha Hammer Reason for Active Directory Specialist: Dr. Hammer was essential to the case for difficult delivery of , retraction, control of bleeding uterine artery and suturing. Dr. Medina relieve Dr. Hammer partway through the case and assisted with retraction and suturing. Anesthesia Type: Epidural Operative Notes Findings: Viable male infant in ROT presentation with nuchal cord, normal uterus, tubes and ovaries Closure Type: primary Specimen(s): cord blood and cord pH Intraoperative meds administered: Ketorolac and Pitocin Applied: Catheter Estimated Blood Loss (mL): 2,000 Procedure in detail: The patient was taken to the operating room and transferred to the table. She was then placed in the dorsal supine position with a leftward tilt. SCDs applied. She was prepped and draped in the usual sterile fashion. A timeout was performed. After epidural analgesia was found to be adequate, a Pfannenstiel skin incision was made 2 fingerbreadths above the pubic symphysis and carried through to the underlying layer fascia. The fascia was nicked in the midline and the incision extended bilaterally with Bill scissors, Dr. Lucas doing the left side and Dr. Hammer doing the right side. The superior aspect of the fascial incision was grasped with a Che clamps, elevated, and the underlying rectus muscles dissected off sharply and bluntly. Attention was then turned to the inferior aspect of this incision which in a similar fashion was grasped with a Che clamps, elevated, and the underlying rectus muscles dissected off sharply and bluntly. The rectus muscles were in the midline. The peritoneum was entered and dissected bluntly laterally by Dr. Lucas and Dr. Hammer. After entering the peritoneum there was good visualization of the bladder. The bladder blade was inserted. The vesicouterine peritoneum was identified, grasped with the pickup, and entered sharply with the Metzenbaum scissors. This incision was extended bilaterally, and the bladder flap was created digitally. The bladder blade was reinserted. The lower uterine segment was incised in a transverse fashion with the scalpel. Upon entering the amniotic sac there was a small amount of meconium stained amniotic fluid. The infant's head was wedged deep in the pelvis so Dr. Hammer first delivered the legs and body. Dr. Lucas placed a finger in the mouth to flex the head the head and the head was delivered. cried immediately. The cord was double clamped and cut after a delay. The was handed off to waiting RN and RT. A segment of cord was collected for gases then cord blood obtained. The placenta was delivered with gentle traction. The uterus was cleared of all clots and debris. The uterus was bleeding briskly and found to have a superior extension involving the right uterine artery. Pitocin was given for uterine tone with good results. The uterine incision and extension was repaired with #1 chromic in a running interlocking fashion and hemostasis achieve of the uterine artery. A second layer the same suture was used for an imbricating layer. Hemostasis was achieved. The tubes and ovaries were examined and were found to be normal. The gutters were cleared of all clots and debris. At this time Dr. Hammer had to leave and Dr. Medina scrubbed in. The peritoneum was closed using 2-0 Vicryl in a running fashion. The fascia was reapproximated using 0 Vicryl in a running fashion. Subcutaneous layer was copiously irrigated with warm normal saline. 3 simple interrupted sutures of 3-0 Vicryl were placed to reapproximate the subcutaneous layer. The skin was closed with 4-0 undyed Vicryl in a subcuticular fashion. Steri-Strips were placed. An Aquacel dressing was placed. The uterus was expressed of a small amount of old blood. Sponge, lap, and instrument counts were correct. The patient tolerated the procedure well, and was taken to PACU in stable condition. Baby 1: Infant Gender: Male Presentation: vertex Position: Right Occiput Transverse Placental Delivery Description: Expressed Cord Vessel Description: 3 Vessels and Nuchal Cord score (1 min): 8 score (5 min): 9 weight: 7 lb 14.21 oz Post-operative Condition: stable Disposition: PACU Aftercare: routine postop
[2021-06-28 14:21] VITALS: BP 112/68; RESP 12; O2SAT 98
[2021-06-28 14:26] VITALS: BP 113/73; PULSE 78; RESP 12; O2SAT 99
[2021-06-28 14:35] VITALS: BP 112/73; PULSE 94; RESP 14; TEMP 36.9; O2SAT 96
--- NOTE | 2021-06-28 15:06 | SUR.PHASEI ---
Pt to PACU after epidural anesthesia with Dr Eastman. SBAR report at bedside. Pt alert, oriented. Complain of pain with fundal massage, that then increased. Pt declined IV medication in order to return to Center as soon as possible. Yeni Fitch to PACU at 1427 requesting that patient be transferred back to Center to be with her baby as this time. Pt transferred back to Center room 1 by this RN in bed, VS at 1435 done in Center by this Rn with fundal check and dressing/wen pad check. 1438 Handoff with bedside report to Angela WITT. and baby at bedside at that time.
[2021-06-28] MEDS: KETOROLAC 30 MG/ML VIAL IV (19:38)
[2021-06-28] MEDS: LACTATED RINGERS 1,000 ML 150 ML IV (20:06)
[2021-06-29] MEDS: KETOROLAC 30 MG/ML VIAL IV ×2 (01:32→07:50)
[2021-06-29 07:16] LABS: Hematocrit 23.4 % (36-46); Hemoglobin 8.1 g/dL (12.0-16.0)
[2021-06-29] MEDS: DOCUSATE 100 MG CAPSULE 200 MG PO (09:01)
--- NOTE | 2021-06-29 11:07 | PM.OBPN.1 ---
Subjective - OB Subjective Date Patient Seen: 06/29/21 Time Patient Seen: 10:20 Interval history: Patient is doing very well this morning. She is ambulating and denies dizziness or lightheadedness today though had a little bit last night. Tolerating a diet and passing flatus. Pain controlled with Toradol only at this time. is going well. Vaginal bleeding moderate. Exam Vital Signs (past 8 hours): Oxygen Delivery Method Room Air Temperature 98.2? blood pressure 92/59 heart rate 86 respirations 18 Narrative Exam Narrative: General: Awake and alert, no acute distress. HEENT: NCAT, EOMI, moist oral mucosa CV: Regular rate and rhythm, no murmurs, rubs or gallops Lungs: CTAB, no wheezes, rales, or rhonchi Abdomen: Aquacel dressing intact with minimal dried drainage. Soft, nontender; bowel tones active; uterus firm 1 cm at umbilicus Extremities: Warm, 1+ edema bilaterally, 2+ pedal pulses bilaterally Objective Labs Result Diagrams: 06/29/21 06:30 Labs: Laboratory Results - last 24 hr 06/29/21 06:30 Hgb 8.1 L Hct 23.4 L Assessment & Plan Assessment and Plan (1) S/P : Status: Acute (2) Cephalopelvic disproportion due to inlet contraction of pelvis: Status: Acute (3) 39 weeks gestation of : Status: Acute (4) Acute blood loss anemia: Status: Acute Plan day: 1 plan OB: routine postop care Comments: 36-year-old after primary section for arrest of descent due to cephalopelvic disproportion. She is doing very well this morning and has been out of bed. Catheter will removed soon. Pain controlled without opiates as of yet. Vaginal bleeding as expected. Reviewed acute blood loss anemia with the patient and her which was lost during surgery. H&H decreased this morning as expected though not needing transfusion. Vital signs are stable without tachycardia and she is without dizziness or lightheadedness when ambulating. Continue care. Anticipate discharge home tomorrow. Time Spent With Patient Time: Total time spent is greater than 50% in coordination of care (as documented) at patient's floor/unit and/or counseling patient: Time with patient: 15-24 minutes
[2021-06-29] MEDS: IBUPROFEN 600 MG TABLET PO ×2 (13:53→20:05)
[2021-06-29] MEDS: ACETAMINOPHEN 325 MG TABLET 650 MG PO ×2 (13:53→20:05)
[2021-06-30] MEDS: ACETAMINOPHEN 325 MG TABLET 650 MG PO ×2 (01:55→08:00)
[2021-06-30] MEDS: IBUPROFEN 600 MG TABLET PO ×2 (01:55→08:00)
--- NOTE | 2021-06-30 07:56 | P.DS_ITS ---
Discharge Providers Provider Date of admission: 06/27/21 23:56 Discharge Date: 06/30/21 Primary care physician: Ashtyn Lucas DO Consults: 06/28/21 00:18 Consult to Anesthesiology Urgent Comment: Consulting Provider: Anesthesiologist Reason for consultation: epidural 06/28/21 17:14 Consult to Vessel Ordinary Seaman Routine Comment: Discharge provider: Ashtyn Lucas DO Summary Hospital Course Date Patient Seen: 06/30/21 Time Patient Seen: 07:30 Diagnoses: 39 weeks of Cephalopelvic disproportion Primary section Acute blood loss anemia Hospital Course: Patient is a 36-year-old now 1 after primary section at 39 weeks and 4 days for cephalopelvic disproportion and arrest of descent in the second stage. Patient initially was admitted for induction on 06/26/21 for advanced maternal age however sent home after Cervidil and Cytotec given persistently unfavorable cervix. She returned on 06/28/21 in active labor after spontaneous rupture of membranes with clear fluid at home. She went on to receive an epidural and progressed to stage II without complications. After 2- 1/2 hours of pushing, Dr. Medina was consulted for possible assisted vaginal delivery. Forceps were attempted however unsuccessful so patient was taken for primary low-transverse section. Delivery of the infant was difficult ultimately requiring breech delivery due to the head at wedged deep in the pelvis. Delivery was also complicated by blood loss from a bleeding uterine artery secondary to extension of the uterine incision from the difficult delivery of the infant. Hemostasis was achieved and remainder of surgery uncomplicated. She has done very well . H&H decreased as expected though not to transfusion threshold. Pain controlled with ibuprofen and Tylenol only. Vaginal bleeding decreasing. She is ambulating, voiding and passing flatus. is going very well. Advised patient to call for fevers, severe pain or bleeding through the in a pad an hour. She will follow-up in clinic early next week for Aquacel dressing removal. Peripartum Data Delivery Method: Section [place] 1: Gender: Male Disposition of : home Discharge Diagnosis (1) S/P : Status: Acute (2) Cephalopelvic disproportion due to inlet contraction of pelvis: Status: Acute (3) 39 weeks gestation of : Status: Acute (4) Acute blood loss anemia: Status: Acute Time Spent with Patient Time attestation: Total time spent providing and/or coordinating discharge services: Objective Labs Result Diagrams: 06/29/21 06:30 Exam Vital Signs (past 8 hours): Oxygen Delivery Method Room Air Temperature 99.1? blood pressure 104/69 heart rate 80 respirations 8 Narrative Exam Narrative: General: Awake and alert, sitting up in bed HEENT: NCAT, EOMI, moist oral mucosa CV: Regular rate and rhythm, no murmurs, rubs or gallops Lungs: CTAB, no wheezes, rales, or rhonchi Abdomen:? Aquacel dressing intact with minimal dried drainage.? Soft, nontender; bowel tones active; uterus firm 1 cm below umbilicus. Extremities: Warm, 1+ edema bilaterally, 2+ pedal pulses bilaterally Discharge Plan Discharge Plan Patient Disposition: Home Discharge orders & Medications Prescriptions: New ferrous sulfate 325 mg (65 mg iron) Tablet 325 mg PO DAILY Qty: 30 0RF docusate sodium 100 mg Capsule 200 mg PO DAILY Qty: 30 0RF ibuprofen 600 mg Tablet 600 mg PO Q6H PRN (Reason: Fever/Mild Pain (1-3)) Qty: 30 0RF oxycodone 5 mg Tablet 5 mg PO Q4H PRN (Reason: Pain, Moderate (4-6)) Qty: 10 0RF Continued prenat.vits,aguilar,[id number] Tablet 1 tab PO DAILY 0RF Discontinued ondansetron 4 mg tablet,disintegrating 4 mg PO Q8H PRN (Reason: nausea and vomiting) Qty: 30 0RF Follow up/Referrals: Ashtyn Lucas DO [Primary Care Provider] - 07/05/21 10:00 am (Aquacel removal) Diet/Activity/Treatments Diet: Diet as Tolerated Skin/Wound/Dressing Care Report to your healthcare provider any signs of infection, such as:: chills, fever, night sweats, increased pain, unusual drainage and unusual redness Visit Report/Discharge Packet Visit Report Forms: Patient Portal/API Discharge Data Primary Care Provider: Ashtyn Lucas
[2021-06-30] MEDS: DOCUSATE 100 MG CAPSULE 200 MG PO (07:59)
[2021-06-30] MEDS: PRENATAL VIT,CALC/IRON/FOLIC 1 TABLET 1 TAB PO (07:59)
[2021-06-30] MEDS: FERROUS SULFATE 325 MG TABLET PO (07:59)
[2021-06-30] MEDS: LANOLIN OINT 7 GM 1 APPLIC TOP (07:59)
[2021-06-30 11:00] VITALS: BP 112/73; PULSE 94; RESP 14; TEMP 36.9
== END 2021-06-30 12:45 | disposition home or self-care (01) | DRG 787 ==
PROVIDERS: Admitting Provider Family Medicine; Family Provider Nurse Practitioner Family; PCP Family Medicine; Referring Provider Family Medicine; Visit Provider Family Medicine
PROC: 10D00Z1 Extraction of Products of Conception, Low, Open Approach (ICD-10-PCS; CPT 59514; principal; 2021-06-28 12:30)
DX: O33.2 Maternal care for disproportion due to inlet contraction of pelvis (principal); E72.12 Methylenetetrahydrofolate reductase deficiency; D62 Acute posthemorrhagic anemia; O99.283 Endocrine, nutritional and metabolic diseases complicating pregnancy, third trimester; O99.02 Anemia complicating childbirth; O66.5 Attempted application of vacuum extractor and forceps; O76 Abnormality in fetal heart rate and rhythm complicating labor and delivery; O99.820 Streptococcus B carrier state complicating pregnancy; O09.513 Supervision of elderly primigravida, third trimester; Z3A.39 39 weeks gestation of pregnancy; O69.81X0 Labor and delivery complicated by cord around neck, without compression, not applicable or unspecified; Z37.0 Single live birth; Z20.822 Contact with and (suspected) exposure to COVID-19
CPT/HCPCS: 01967; 01968; 36415; 59025; 59050; 59200; 59510; 59514; 85014; 85018; 85025; 86850; 86900; 86901; 87635; 99252; C9803; G0378; G0379; J0690; J1100; J1885; J2274; J2405; J2540; J2590

== ENCOUNTER → 2021-10-11 11:46 | Outpatient (CLI) | payer OTHER, SELFPAY | PROVIDERS: Family Provider Nurse Practitioner Family; PCP Family Medicine; Visit Provider Family Medicine | DX: N64.4 Mastodynia (principal) | CPT/HCPCS: 87070; 87075; 87205 ==

== ENCOUNTER → 2021-10-21 10:30 | Outpatient (CLI) | payer OTHER, SELFPAY ==
[2021-10-21 16:02] LABS: Appearance Urine UA CLEAR; Bilirubin Urine UA NEGATIVE (NEGATIVE); Color Urine UA YELLOW; Glucose Urine UA NEGATIVE (Negative); Ketones Urine UA NEGATIVE (NEGATIVE); Leukocyte Esterase Urine UA TRACE (NEGATIVE); Nitrite Urine UA NEGATIVE (Negative); Occult Blood Urine UA 3+ (Negative); Protein Urine UA NEGATIVE (Negative); Specific Gravity Urine UA <=1.005 (1.000-1.035); Urobilinogen Urine UA 0.2 E.U./dL (0.2)
[2021-10-21 16:50] LABS: pH Urine UA 7.5 (4.5-8.0)
[2021-10-21 16:51] LABS: Bacteria Urine Occasional (0-1); Culture Indicated Urine Specimen Cultured; RBC Urine 10-30/HPF (0-5/HPF); Squamous Epithelial Cell Urine 1-5 /HPF (0-5/HPF); Transitional Epi Cells Urine 5-10/HPF (0-5/HPF); WBC Urine 5-10/HPF (0-5/HPF)
== END ==
PROVIDERS: Family Provider Nurse Practitioner Family; PCP Family Medicine; Referring Provider Family Medicine; Visit Provider Family Medicine
DX: R30.0 Dysuria (principal)
CPT/HCPCS: 81001; 87086

== ENCOUNTER → 2021-11-22 16:19 | Outpatient (CLI) | payer OTHER, SELFPAY ==
[2021-11-22 16:49] LABS: Add Manual Diff / Slide Review NO; Basophils Absolute Auto 0 /uL (0-100); Basophils Percent Auto 0.7 % (0-2); Eosinophils Absolute Auto 100 /uL (0-450); Eosinophils Percent Auto 2.2 % (2-4); Hematocrit 37.6 % (36-46); Hemoglobin 12.8 g/dL (12.0-16.0); Lymphocytes Absolute Auto 1400 /uL (1100-4500); Lymphocytes Percent Auto 21.9 % (25-40); Mean Corpuscular HGB Conc 34.1 % (30-36); Mean Corpuscular Hemoglobin 30.4 PG (26-34); Mean Corpuscular Volume 89.2 fL (80-100); Monocytes Absolute Auto 400 /uL (0-900); Monocytes Percent Auto 6.6 % (3-14); Neutrophils Absolute Auto 4200 /uL (1500-7000); Neutrophils Percent Auto 68.6 % (50-75); Platelet Count 268 X10^3/uL (150-400); Red Blood Cell Count 4.22 X10^6/uL (4.0-5.2); Red Cell Distribution Width 14.1 % (11.6-14.8); White Blood Cell Count 6.2 X10^3/uL (4.5-11.0)
[2021-11-22 17:04] LABS: Alanine Aminotransferase 24 IU/L (<35); Albumin 4.6 g/dL (3.5-5.0); Albumin Globulin Ratio 1.5 (1.0-2.8); Alkaline Phosphatase 104 U/L (38-126); Aspartate Aminotransferase 27 IU/L (14-36); BUN Creatinine Ratio 19.7 (6-22); Bilirubin Total 1.4 mg/dL (0.2-1.3); Blood Urea Nitrogen 14 mg/dL (7-17); C-Reactive Protein Quant < 0.5 mg/dL (<1.0); Calcium 9.4 mg/dL (8.4-10.2); Carbon Dioxide 30 mmol/L (22-32); Chloride 102 mmol/L (98-107); Estimated Glomerular Filt Rate > 60.0 mL/min (>60); Globulin 3.1 g/dL (1.7-4.1); Glucose 88 mg/dL (70-100); HEMOLYSIS < 15 (0-50); Potassium 3.6 mmol/L (3.4-5.1); Sodium 141 mmol/L (137-145); Total Protein 7.7 g/dL (6.3-8.2)
[2021-11-22 17:12] LABS: Erythrocyte Sedimentation Rate 7 MM/HR (0-20)
[2021-11-22 17:40] LABS: TSH w/ Reflex to FT4 1.71 uIU/mL (0.47-4.68)
[2021-11-22 18:07] LABS: Folate 8.9 ng/mL (2.76-20.0); Vitamin B12 562 pg/mL (239-931)
[2021-11-24 22:05] LABS: Methylmalonic Acid,Serum 111 nmol/L (0-378)
== END ==
PROVIDERS: Family Provider Nurse Practitioner Family; PCP Family Medicine; Referring Provider Family Medicine; Visit Provider Family Medicine
DX: D68.59 Other primary thrombophilia (principal); F41.8 Other specified anxiety disorders; O99.345 Other mental disorders complicating the puerperium; R20.2 Paresthesia of skin
CPT/HCPCS: 36415; 80053; 82607; 82746; 83090; 83921; 84443; 85025; 85651; 86140

== ENCOUNTER → 2024-03-17 07:41 | Outpatient (CLI) | payer OTHER, SELFPAY ==
--- NOTE | 2024-03-17 07:42 | DI.US.S_ITS ---
PROCEDURE: US PELVIC COMPLETE INDICATIONS: MENNORHAGIA TECHNIQUE: Real-time scanning was performed of the pelvic organs, with image documentation. Additional endovaginal scanning was necessary due to incomplete visualization of the adnexal and endometrial structures by transabdominal scanning. COMPARISON: None. FINDINGS: Uterus: Uterus is anteverted and normal in size at 7.6 x 3.7 x 4.9 cm. The myometrium is homogeneous. The endometrium measures 11.9 mm combined thickness. Normal vascular flow in the myometrium and endometrium. Ovaries: The right ovary measures 2.9 x 2.3 x 1.6 cm, with a calculated ovarian volume of 5.5 cc. The left ovary measures 3.8 x 3.2 x 2.3 cm, with a calculated ovarian volume of 14.7 cc. The ovaries have a normal sonographic appearance. There is a dominant follicle in the left ovary. Both ovaries have less than 12 follicles present. No adnexal masses are seen. Other: No pathologic free abdominal or pelvic fluid. IMPRESSION: Normal pelvic ultrasound We strive to produce accurate, complete, and clear reports of imaging services. To assist us in improving patient care, this report was composed using standard report templates and voice recognition software. Therefore, it may contain abnormal punctuation, insertions and/or omissions. Occasional wrong-word or sound-alike substitutions may occur. Though we review the report and make efforts to correct it, we do recommend that the report be read carefully in proper context to recognize any text inaccuracies. Dictated by: Ling Carranza M.D. on 03/17/2024 at 16:17 Approved by: Ling Carranza M.D. on 03/17/2024 at 16:19
== END ==
PROVIDERS: Family Provider Nurse Practitioner Family; PCP Student in an Organized Health Care Education/Training Program; Referring Provider Student in an Organized Health Care Education/Training Program; Visit Provider Student in an Organized Health Care Education/Training Program
DX: N92.0 Excessive and frequent menstruation with regular cycle (principal)
CPT/HCPCS: 76830; 76856

== ENCOUNTER → 2024-05-30 07:45 | Outpatient (CLI) | payer OTHER, SELFPAY ==
--- NOTE | 2024-05-30 07:46 | DI.MG.S_ITS ---
BILATERAL DIGITAL SCREENING MAMMOGRAM 3D/2D WITH CAD: 05/30/2024 CLINICAL: Routine screening. Family history of breast cancer. Comparison is made to exam dated: 09/20/2015 mammogram - [facility]. The breasts are extremely dense, which lowers the sensitivity of mammography (category d />75% glandular tissue). Current study was also evaluated with a Computer Aided Detection (CAD) system. No significant masses, calcifications, or other findings are seen in either breast. There has been no significant interval change. IMPRESSION: NEGATIVE There is no mammographic evidence of malignancy. A 1 year screening mammogram is recommended. Based on Tyrer-Cuzick model (a risk assessment model), the patient's lifetime risk is 26.1% and her 10 year risk is 3.3%. If a patient has an elevated risk, a more comprehensive evaluation should be considered and/or a referral to a genetic counselor. The [employer], [employer], and NCCN Guidelines advise the consideration of Breast MRI as an adjunct to screening mammography in patients whose Lifetime risk to develop breast cancer is 20% or higher. This exam was interpreted at Station ID: [id number]. NOTE: For mammograms, a report in lay terms will be sent to the patient. Approximately 15% of breast malignancies will not be visualized mammographically. In the management of a palpable breast mass, a negative mammogram must not discourage biopsy of a clinically suspicious lesion. Electronically Signed By: Carine Paiz M.D., Ph.D. marva/zeynep:05/31/2024 00:40:45 letter sent: Normal Exam ACR BI-RADS Category 1: Negative
== END ==
PROVIDERS: Family Provider Nurse Practitioner Family; PCP Student in an Organized Health Care Education/Training Program; Referring Provider Student in an Organized Health Care Education/Training Program; Visit Provider Student in an Organized Health Care Education/Training Program
DX: Z12.31 Encounter for screening mammogram for malignant neoplasm of breast (principal); Z80.3 Family history of malignant neoplasm of breast; R92.343 Mammographic extreme density, bilateral breasts
CPT/HCPCS: 77063; 77067